=== PATIENT | male | born 1995 | race Caucasian/White ===

== ENCOUNTER 2018-10-09 19:36 | Emergency (ER) | payer OTHER ==
[~2018-10-09] VITALS: Ht 180.3 cm; Wt 108.4 kg
[2018-10-09 19:52] VITALS: Ht 180.3 cm; Wt 108.4 kg
[2018-10-09 23:22] VITALS: BP 134/81
== END 2018-10-09 23:22 | disposition home or self-care (01) ==
LOC: ED 19:36
DX: T23.401A Corrosion of unspecified degree of right hand, unspecified site, initial encounter (principal); Y93.89 Activity, other specified; Y92.89 Other specified places as the place of occurrence of the external cause; Y99.8 Other external cause status
CPT/HCPCS: 90715